=== PATIENT | female | born 1960 | race African-American/Black ===

== ENCOUNTER 2021-09-25 09:19 | Emergency (ER) | payer MEDICARE, MEDICAID ==
[2021-09-25 10:13] LABS: #Eosinphils 0.2 10x3/uL (0.0-0.5); #Monocytes 0.6 10x3/uL (0.0-1.1); #Neutrophils 6.5 10x3/uL (1.5-8.4); %Basophils 0.3 % (0.0-2.0); %Eosinophils 2.1 % (0.0-6.0); %Lymphocytes 15.7 % (18.0-47.0); %Monocytes 6.5 % (0.0-10.0); %Neutrophils 75.1 % (40.0-75.0); Hemoglobin 8.3 g/dL (12.0-15.5); Mean Corpuscular Hemoglobin 26.5 pg (27.0-33.0); Mean Corpuscular Volume 85.6 fl (81.6-98.3); Mean Platelet Volume 9.9 fl (7.4-10.4); Platelet Count 251 10x3/uL (150-450); RBC Distribution Width 14.2 % (11.5-14.5); Red Blood Cell (RBC) Count 3.13 10x6/uL (3.90-5.03); White Blood Cell (WBC) Count 8.6 10x3/uL (3.5-10.5)
[2021-09-25 10:41] LABS: ALT (SGPT) 9 U/L (8-55); AST (SGOT) 10 U/L (5-34); Albumin 3.6 g/dL (3.4-4.8); Alkaline Phosphatase 95 U/L (40-110); Anion Gap 14 mmol/L (10-20); BUN (Urea Nitrogen) 37 mg/dL (9.8-20.1); Bilirubin, Total 0.2 mg/dL (0.2-1.2); Calc. Creatinine Clearance 0 mL/min (70-130); Calcium 8.7 mg/dL (7.8-10.44); Carbon Dioxide 20 mmol/L (23-31); Chloride 106 mmol/L (98-107); Globulin 2.7 g/dL (2.4-3.5); Glucose 334 mg/dL (80-115); Potassium 5.4 mmol/L (3.5-5.1); Protein, Total 6.3 g/dL (5.8-8.1); Sodium 135 mmol/L (136-145)
== END 2021-09-25 13:22 | disposition home or self-care (01) ==
LOC: CSHERS 09:19
DX: R07.89 Other chest pain (principal); E11.22 Type 2 diabetes mellitus with diabetic chronic kidney disease; E11.40 Type 2 diabetes mellitus with diabetic neuropathy, unspecified; I13.0 Hypertensive heart and chronic kidney disease with heart failure and stage 1 through stage 4 chronic kidney disease, or unspecified chronic kidney disease; E03.9 Hypothyroidism, unspecified; D64.9 Anemia, unspecified; D57.3 Sickle-cell trait; I48.91 Unspecified atrial fibrillation; E78.00 Pure hypercholesterolemia, unspecified; E78.5 Hyperlipidemia, unspecified; M19.90 Unspecified osteoarthritis, unspecified site; F03.90 Unspecified dementia, unspecified severity, without behavioral disturbance, psychotic disturbance, mood disturbance, and anxiety; Z86.73 Personal history of transient ischemic attack (TIA), and cerebral infarction without residual deficits; J44.9 Chronic obstructive pulmonary disease, unspecified; Z79.01 Long term (current) use of anticoagulants; Z79.899 Other long term (current) drug therapy; Z79.4 Long term (current) use of insulin; Z79.84 Long term (current) use of oral hypoglycemic drugs
CPT/HCPCS: 36415; 71045; 80053; 83880; 84484; 85025; 93005

== ENCOUNTER 2021-11-25 00:05 | Inpatient (IN) | payer MEDICARE, MEDICAID ==
[2021-11-25 00:58] LABS: ALT (SGPT) 13 U/L (8-55); AST (SGOT) 14 U/L (5-34); Albumin 3.9 g/dL (3.4-4.8); Alkaline Phosphatase 99 U/L (40-110); Anion Gap 14 mmol/L (10-20); BUN (Urea Nitrogen) 26 mg/dL (9.8-20.1); Bilirubin, Total 0.3 mg/dL (0.2-1.2); Calc. Creatinine Clearance 0 mL/min (70-130); Chloride 104 mmol/L (98-107); Globulin 2.8 g/dL (2.4-3.5); Glucose 151 mg/dL (80-115); Potassium 5.2 mmol/L (3.5-5.1); Protein, Total 6.7 g/dL (5.8-8.1); Sodium 138 mmol/L (136-145)
[2021-11-25 00:59] LABS: Hemoglobin 8.8 g/dL (12.0-15.5); Mean Corpuscular HGB CONC 30.7 g/dL (32.0-36.0); Mean Corpuscular Hemoglobin 25.4 pg (27.0-33.0); Mean Corpuscular Volume 82.9 fl (81.6-98.3); Mean Platelet Volume 9.8 fl (7.4-10.4); Platelet Count 219 10x3/uL (150-450); RBC Distribution Width 14.6 % (11.5-14.5); Red Blood Cell (RBC) Count 3.46 10x6/uL (3.90-5.03); White Blood Cell (WBC) Count 5.1 10x3/uL (3.5-10.5)
[2021-11-25 01:22] LABS: CKMB 1.3 ng/mL (0-6.6)
[2021-11-25 01:24] LABS: MDiff Complete? YES
[2021-11-25 01:29] LABS: Carbon Dioxide 25 mmol/L (23-31)
[2021-11-25 01:31] LABS: Eosinophils 1 % (0-10); Lymphocytes 20 % (21-51); Monocytes 22 % (0-10); Neutrophil 57 % (42-75)
[2021-11-25 01:34] LABS: Platelet Morphology Comment Appears Adequate; RBC Morphology Normal
[2021-11-25] MEDS ORDERED: Dexamethasone 10 MG/ML VIAL ONE (02:36)
[2021-11-25] MEDS ORDERED: Mometasone/Formoterol 200/5 60 PUFF INH SCH (07:00)
[2021-11-25] MEDS ORDERED: Furosemide 100 MG/10 ML VIAL SLOW IVP SCH (07:30)
[2021-11-25] MEDS ORDERED: Lantus 1000 UNITS/10 ML VIAL SC SCH ×2 (09:00→21:00)
[2021-11-25] MEDS ORDERED: Apixaban 2.5 MG TAB PO SCH (09:00)
[2021-11-25] MEDS ORDERED: risperiDONE 1 MG TAB PO SCH (09:00)
[2021-11-25] MEDS: Amlodipine 10 MG TAB PO SCH ×2 (09:05→15:19)
[2021-11-25] MEDS: Brimonidine Tartrate 0.2% Ophth Soln 5 ml Bottle L EYE SCH ×3 (09:05→20:18)
[2021-11-25] MEDS: Ascorbic Acid 500 mg Chewable Tablet PO SCH ×2 (09:05→15:20)
[2021-11-25] MEDS: Cholecalciferol 1,000 UNITS (25 MCG) TAB PO SCH ×2 (09:05→15:20)
[2021-11-25] MEDS: Levothyroxine Sodium 125 MCG TAB PO SCH ×2 (09:05→15:19)
[2021-11-25] MEDS: Aspirin 81 mg Enteric Coated Tablet PO SCH ×2 (09:05→15:20)
[2021-11-25] MEDS: Zinc Sulfate 220 MG CAP PO SCH ×2 (09:05→15:20)
[2021-11-25] MEDS: clonazePAM 0.5 MG TAB PO SCH ×3 (09:05→20:19)
[2021-11-25] MEDS: Lisinopril 10 MG TAB PO SCH ×2 (09:06→15:20)
[2021-11-25] MEDS: Timolol 0.25% Ophth Soln 5 ml Bottle EA EYE SCH ×2 (09:06→20:20)
[2021-11-25] MEDS: Dexamethasone 20 MG/5 ML VIAL SLOW IVP SCH ×2 (09:06→15:20)
[2021-11-25] MEDS: Brimonidine Tartrate 0.2% Ophth Soln 5 ml Bottle R EYE SCH ×2 (09:06→20:18)
[2021-11-25 09:09] VITALS: BMI 54.8
[2021-11-25] MEDS: Apixaban 5 MG TAB PO SCH ×3 (09:28→20:18)
[2021-11-25] MEDS ORDERED: Dextrose 5% in Water 1,000 ML IV PRN (12:53)
[2021-11-25] MEDS ORDERED: Dextrose 50% Abboject 50 ML SYRINGE SLOW IVP PRN (12:53)
[2021-11-25] MEDS: Furosemide 40 MG/4 ML VIAL SLOW IVP SCH (14:26)
[2021-11-25] MEDS: risperiDONE 1 MG TAB PO SCH ×2 (18:45→20:17)
[2021-11-25] MEDS: HumaLOG 300 UNITS/3 ML VIAL SC PRN (19:35)
[2021-11-25] MEDS: Mometasone/Formoterol 200/5 60 PUFF INH SCH (20:55)
[2021-11-25] MEDS ORDERED: Latanoprost 0.005% Ophth Soln 2.5 ml Bottle EA EYE SCH (21:00)
[2021-11-25] MEDS ORDERED: Atorvastatin Calcium 40 MG TAB PO SCH (21:00)
[2021-11-25 21:38] LABS: Actual Bicarbonate (HCO3a) 17.2 mEq/L (22-28); Base Excess (BEa) -3.1 mEq/L (-2.0 to +3.0); CO2 Tension 18.7 mmHg (35.0-45.0); Calcium, Ionized (arterial) 0.94 mmol/L (1.12-1.30); Carboxyhemoglobin (COHb) 0.3 gm% (0.0-3.0); O2 Tension (PaO2), arterial 198.3 mmHg (> 80.0); Potassium - ABG Lab 5.6 mmol/L (3.70-5.30); Puncture Site Other Site; pH, Arterial 7.58 (7.35-7.45)
[2021-11-25 21:39] LABS: ALV-art Gradient -22.035 mmHg (0-20)
[2021-11-26 05:28] LABS: ALT (SGPT) 13 U/L (8-55); AST (SGOT) 15 U/L (5-34); Albumin 3.4 g/dL (3.4-4.8); Alkaline Phosphatase 91 U/L (40-110); Anion Gap 16 mmol/L (10-20); BUN (Urea Nitrogen) 44 mg/dL (9.8-20.1); Bilirubin, Total 0.2 mg/dL (0.2-1.2); CRP (Inflammatory) 1.45 mg/dL (= or < 0.5); Calc. Creatinine Clearance 41 mL/min (70-130); Calcium 8.6 mg/dL (7.8-10.44); Carbon Dioxide 22 mmol/L (23-31); Chloride 102 mmol/L (98-107); Globulin 3.1 g/dL (2.4-3.5); Glucose 218 mg/dL (80-115); Potassium 5.2 mmol/L (3.5-5.1); Protein, Total 6.5 g/dL (5.8-8.1); Sodium 135 mmol/L (136-145)
[2021-11-26 05:48] LABS: #Monocytes 0.7 10x3/uL (0.0-1.1); #Neutrophils 3.5 10x3/uL (1.5-8.4); %Basophils 0.2 % (0.0-2.0); %Lymphocytes 15.4 % (18.0-47.0); %Monocytes 14.6 % (0.0-10.0); %Neutrophils 69.4 % (40.0-75.0); Hemoglobin 8.5 g/dL (12.0-15.5); Mean Corpuscular HGB CONC 31.5 g/dL (32.0-36.0); Mean Corpuscular Hemoglobin 25.8 pg (27.0-33.0); Mean Corpuscular Volume 82.1 fl (81.6-98.3); Mean Platelet Volume 10.4 fl (7.4-10.4); Platelet Count 197 10x3/uL (150-450); RBC Distribution Width 14.1 % (11.5-14.5); Red Blood Cell (RBC) Count 3.29 10x6/uL (3.90-5.03); White Blood Cell (WBC) Count 5.1 10x3/uL (3.5-10.5)
[2021-11-26] MEDS: Furosemide 40 MG/4 ML VIAL SLOW IVP SCH ×2 (05:59→14:18)
[2021-11-26] MEDS: Levothyroxine Sodium 125 MCG TAB PO SCH ×2 (05:59→06:09)
[2021-11-26] MEDS: HumaLOG 300 UNITS/3 ML VIAL SC PRN ×3 (06:00→12:30)
[2021-11-26] MEDS: Mometasone/Formoterol 200/5 60 PUFF INH SCH (07:13)
[2021-11-26] MEDS: Dexamethasone 20 MG/5 ML VIAL SLOW IVP SCH (08:06)
[2021-11-26] MEDS: Lisinopril 10 MG TAB PO SCH (08:07)
[2021-11-26] MEDS: Ascorbic Acid 500 mg Chewable Tablet PO SCH (08:07)
[2021-11-26] MEDS: clonazePAM 0.5 MG TAB PO SCH (08:07)
[2021-11-26] MEDS: Zinc Sulfate 220 MG CAP PO SCH (08:07)
[2021-11-26] MEDS: Amlodipine 10 MG TAB PO SCH (08:07)
[2021-11-26] MEDS: Aspirin 81 mg Enteric Coated Tablet PO SCH (08:07)
[2021-11-26] MEDS: risperiDONE 1 MG TAB PO SCH ×2 (08:07→14:18)
[2021-11-26] MEDS: Cholecalciferol 1,000 UNITS (25 MCG) TAB PO SCH (08:07)
[2021-11-26] MEDS: Apixaban 5 MG TAB PO SCH (08:07)
[2021-11-26] MEDS: Brimonidine Tartrate 0.2% Ophth Soln 5 ml Bottle L EYE SCH (08:07)
[2021-11-26] MEDS: Brimonidine Tartrate 0.2% Ophth Soln 5 ml Bottle R EYE SCH (08:08)
[2021-11-26] MEDS: Timolol 0.25% Ophth Soln 5 ml Bottle EA EYE SCH (08:08)
[2021-11-26] MEDS ORDERED: Pantoprazole 40 MG VIAL IVP SCH (09:00)
[2021-11-26 15:31] LABS: SARS-CoV-2 PCR by NAA DETECTED (NotDetected)
[2021-11-26 18:29] VITALS: BP 122/68; TEMP 97.1
== END 2021-11-26 18:49 | disposition home or self-care (01) | DRG 177 ==
LOC: CSHERS 00:05 → CSHTELE 06:31
PROVIDERS: ADMIT Family Medicine; ATTEND Family Medicine
PROC: 8E0ZXY6 Isolation (ICD-10-PCS; principal; 2021-11-25)
DX: U07.1 COVID-19 (principal); J96.01 Acute respiratory failure with hypoxia; I50.30 Unspecified diastolic (congestive) heart failure; N18.4 Chronic kidney disease, stage 4 (severe); I13.0 Hypertensive heart and chronic kidney disease with heart failure and stage 1 through stage 4 chronic kidney disease, or unspecified chronic kidney disease; Z68.43 Body mass index [BMI] 50.0-59.9, adult; F03.90 Unspecified dementia, unspecified severity, without behavioral disturbance, psychotic disturbance, mood disturbance, and anxiety; F31.9 Bipolar disorder, unspecified; F20.9 Schizophrenia, unspecified; E66.01 Morbid (severe) obesity due to excess calories; N18.9 Chronic kidney disease, unspecified; I48.0 Paroxysmal atrial fibrillation; K21.9 Gastro-esophageal reflux disease without esophagitis; E89.0 Postprocedural hypothyroidism; E11.22 Type 2 diabetes mellitus with diabetic chronic kidney disease; E78.5 Hyperlipidemia, unspecified; E78.00 Pure hypercholesterolemia, unspecified; M19.90 Unspecified osteoarthritis, unspecified site; J45.909 Unspecified asthma, uncomplicated; E11.40 Type 2 diabetes mellitus with diabetic neuropathy, unspecified; E87.5 Hyperkalemia; Z88.1 Allergy status to other antibiotic agents; Z79.899 Other long term (current) drug therapy; Z79.4 Long term (current) use of insulin; Z90.710 Acquired absence of both cervix and uterus; Z20.822 Contact with and (suspected) exposure to COVID-19; J44.9 Chronic obstructive pulmonary disease, unspecified; Z86.73 Personal history of transient ischemic attack (TIA), and cerebral infarction without residual deficits; Z79.01 Long term (current) use of anticoagulants
CPT/HCPCS: 0240U; 36415; 36416; 71045; 80053; 82140; 82550; 82553; 82805; 83690; 83735; 83880; 84145; 84443; 84484; 85025; 86140; 93005; 93010; 94664; 94760; 96374; C9113; J1100; J1815; J1940; U0003; U0005

== ENCOUNTER 2022-12-04 13:47 | Inpatient (IN) | payer MEDICARE, OTHER ==
[~2022-12-04 13:47] MED LIST: Iopamidol 370 76% 100 ML VIAL ONE
[2022-12-04 14:32] LABS: #Eosinphils 0.4 10x3/uL (0.0-0.5); #Monocytes 0.5 10x3/uL (0.0-1.1); #Neutrophils 5.4 10x3/uL (1.5-8.4); %Basophils 0.3 % (0.0-2.0); %Eosinophils 5.1 % (0.0-6.0); %Lymphocytes 16.6 % (18.0-47.0); %Monocytes 6.3 % (0.0-10.0); %Neutrophils 71.4 % (40.0-75.0); Hemoglobin 11.1 g/dL (12.0-15.5); Mean Corpuscular HGB CONC 31.9 g/dL (32.0-36.0); Mean Corpuscular Hemoglobin 26.9 pg (27.0-33.0); Mean Corpuscular Volume 84.3 fl (81.6-98.3); Mean Platelet Volume 9.7 fl (7.4-10.4); Platelet Count 227 10x3/uL (150-450); Red Blood Cell (RBC) Count 4.13 10x6/uL (3.90-5.03); White Blood Cell (WBC) Count 7.6 10x3/uL (3.5-10.5)
[2022-12-04 14:40] LABS: ALT (SGPT) 11 U/L (8-55); AST (SGOT) 12 U/L (5-34); Albumin 3.9 g/dL (3.4-4.8); Alkaline Phosphatase 94 U/L (40-110); Anion Gap 17 mmol/L (10-20); BUN (Urea Nitrogen) 24 mg/dL (9.8-20.1); Bilirubin, Total 0.3 mg/dL (0.2-1.2); Calc. Creatinine Clearance 0 mL/min (70-130); Calcium 9.4 mg/dL (7.8-10.44); Carbon Dioxide 18 mmol/L (23-31); Chloride 110 mmol/L (98-107); Estimated GFR 27; Globulin 2.8 g/dL (2.4-3.5); Glucose 83 mg/dL (80-115); Protein, Total 6.7 g/dL (5.8-8.1); Sodium 140 mmol/L (136-145)
[2022-12-04 14:57] LABS: CKMB 1.1 ng/mL (0-6.6)
[2022-12-04 15:10] LABS: INR-International Normal Ratio 0.9; PTT 29.2 sec (22.0-33.0); Prothrombin Time 10.3 sec (9.5-12.1)
[2022-12-04] MEDS ORDERED: Ondansetron PF 4 MG/2 ML Vial IVP PRN (16:25)
[2022-12-04] MEDS ORDERED: Aspirin 300 MG Suppository PR SCH (18:30)
[2022-12-04 19:04] VITALS: BMI 41.5
[2022-12-04] MEDS ORDERED: Sodium Bicarbonate 150 MEQ, Admixture Fee 1 EACH in Dextrose 5% in Water 1,000 ML IV SCH (20:00)
[2022-12-04] MEDS ORDERED: Timolol 0.25% Ophth Soln 5 ml Bottle EA EYE SCH (21:00)
[2022-12-04] MEDS ORDERED: Brimonidine Tartrate 0.2% Ophth Soln 5 ml Bottle EA EYE SCH (21:00)
[2022-12-04] MEDS: Latanoprost 0.005% Ophth Soln 2.5 ml Bottle EA EYE SCH (21:34)
[2022-12-04] MEDS: Nystatin Powder 15 GM BOT TOP SCH (21:35)
[2022-12-04 21:52] LABS: Hemoglobin A1c 5.8 % (4.0-6.0)
[2022-12-05 03:50] LABS: #Eosinphils 0.1 10x3/uL (0.0-0.5); #Monocytes 0.5 10x3/uL (0.0-1.1); #Neutrophils 2.6 10x3/uL (1.5-8.4); %Basophils 0.4 % (0.0-2.0); %Eosinophils 2.6 % (0.0-6.0); %Lymphocytes 34.9 % (18.0-47.0); %Monocytes 9.7 % (0.0-10.0); %Neutrophils 52.2 % (40.0-75.0); Hemoglobin 9.4 g/dL (12.0-15.5); Mean Corpuscular HGB CONC 32.3 g/dL (32.0-36.0); Mean Corpuscular Hemoglobin 26.6 pg (27.0-33.0); Mean Corpuscular Volume 82.4 fl (81.6-98.3); Mean Platelet Volume 9.5 fl (7.4-10.4); Platelet Count 225 10x3/uL (150-450); RBC Distribution Width 14.1 % (11.5-14.5); Red Blood Cell (RBC) Count 3.53 10x6/uL (3.90-5.03)
[2022-12-05 03:54] LABS: ALT (SGPT) 10 U/L (8-55); Albumin 3.3 g/dL (3.4-4.8); Alkaline Phosphatase 72 U/L (40-110); Anion Gap 12 mmol/L (10-20); BUN (Urea Nitrogen) 25 mg/dL (9.8-20.1); Bilirubin, Total 0.3 mg/dL (0.2-1.2); Calc. Creatinine Clearance 48 mL/min (70-130); Calcium 9.5 mg/dL (7.8-10.44); Carbon Dioxide 26 mmol/L (23-31); Chloride 107 mmol/L (98-107); Estimated GFR 26; Globulin 3.1 g/dL (2.4-3.5); Glucose 85 mg/dL (80-115); Potassium 4.5 mmol/L (3.5-5.1); Protein, Total 6.4 g/dL (5.8-8.1); Sodium 140 mmol/L (136-145)
[2022-12-05 04:00] LABS: Cardiac Risk 4.4 (Less than 4.5); Cholesterol 150 mg/dl (< 200 Desired); HDL Cholesterol 34 mg/dL (>60 Neg Risk)
[2022-12-05 04:10] LABS: AST (SGOT) 7 U/L (5-34); Triglycerides 97 mg/dL (Less than 150)
[2022-12-05 04:13] LABS: LDL Cholesterol, Calculated 97 mg/dL
[2022-12-05] MEDS ORDERED: Non-Formulary Medication 1 EACH (Brimonidine Tartrate/Timolol [Combigan 0.2%-0.5% Eye Drop EA EYE SCH (07:30)
[2022-12-05] MEDS ORDERED: Aspirin 81 mg Enteric Coated Tablet PO SCH (09:00)
[2022-12-05] MEDS: Enoxaparin 120 MG/0.8 ML SYRINGE SC SCH ×2 (12:02→21:32)
[2022-12-05] MEDS: Aspirin 300 MG Suppository PR SCH (12:02)
[2022-12-05] MEDS: Brimonidine Tartrate 0.2% Ophth Soln 5 ml Bottle EA EYE SCH ×2 (12:03→21:31)
[2022-12-05] MEDS: Pantoprazole 40 MG VIAL IVP SCH (12:03)
[2022-12-05] MEDS: Nystatin Powder 15 GM BOT TOP SCH ×2 (12:03→21:34)
[2022-12-05] MEDS: Timolol 0.5% Ophth Soln 5 ml Bottle EA EYE SCH ×2 (12:04→21:50)
[2022-12-05] MEDS ORDERED: Calcium Carbonate 500 MG ChewTAB PO PRN (17:40)
[2022-12-05] MEDS: Latanoprost 0.005% Ophth Soln 2.5 ml Bottle EA EYE SCH (21:34)
[2022-12-05] MEDS: Atorvastatin Calcium 40 MG TAB PO SCH (21:46)
[2022-12-06] MEDS: Levothyroxine Sodium 125 MCG TAB PO SCH (05:43)
[2022-12-06 06:04] LABS: #Eosinphils 0.2 10x3/uL (0.0-0.5); #Monocytes 0.9 10x3/uL (0.0-1.1); #Neutrophils 4.5 10x3/uL (1.5-8.4); %Basophils 0.5 % (0.0-2.0); %Eosinophils 2.5 % (0.0-6.0); %Lymphocytes 29.1 % (18.0-47.0); %Monocytes 10.6 % (0.0-10.0); %Neutrophils 55.8 % (40.0-75.0); Hemoglobin 10.5 g/dL (12.0-15.5); Mean Corpuscular HGB CONC 33.2 g/dL (32.0-36.0); Mean Corpuscular Hemoglobin 26.9 pg (27.0-33.0); Mean Platelet Volume 10.3 fl (7.4-10.4); Platelet Count 180 10x3/uL (150-450); White Blood Cell (WBC) Count 8.1 10x3/uL (3.5-10.5)
[2022-12-06] MEDS: Aspirin 300 MG Suppository PR SCH (10:16)
[2022-12-06] MEDS: Pantoprazole 40 MG VIAL IVP SCH (10:19)
[2022-12-06] MEDS: Enoxaparin 120 MG/0.8 ML SYRINGE SC SCH ×2 (10:19→21:35)
[2022-12-06] MEDS: Timolol 0.5% Ophth Soln 5 ml Bottle EA EYE SCH ×2 (10:19→21:34)
[2022-12-06] MEDS: Nystatin Powder 15 GM BOT TOP SCH ×2 (10:30→21:36)
[2022-12-06] MEDS: Brimonidine Tartrate 0.2% Ophth Soln 5 ml Bottle EA EYE SCH ×2 (10:30→21:34)
[2022-12-06] MEDS: D5 1/2 NS w/10 mEq KCl 1,000 ML/1,000 ML BAG IV SCH (13:00)
[2022-12-06] MEDS: Atorvastatin Calcium 40 MG TAB PO SCH (21:28)
[2022-12-06] MEDS: Latanoprost 0.005% Ophth Soln 2.5 ml Bottle EA EYE SCH (21:33)
[2022-12-07] MEDS: Levothyroxine Sodium 125 MCG TAB PO SCH (06:12)
[2022-12-07] MEDS: D5 1/2 NS w/10 mEq KCl 1,000 ML/1,000 ML BAG IV SCH (08:32)
[2022-12-07] MEDS: Pantoprazole 40 MG VIAL IVP SCH (08:33)
[2022-12-07] MEDS: Aspirin 300 MG Suppository PR SCH (08:33)
[2022-12-07] MEDS: Nystatin Powder 15 GM BOT TOP SCH ×2 (08:33→21:09)
[2022-12-07] MEDS: Enoxaparin 120 MG/0.8 ML SYRINGE SC SCH ×2 (08:33→21:06)
[2022-12-07] MEDS: Brimonidine Tartrate 0.2% Ophth Soln 5 ml Bottle EA EYE SCH ×2 (08:33→21:07)
[2022-12-07] MEDS: Timolol 0.5% Ophth Soln 5 ml Bottle EA EYE SCH ×2 (08:34→21:17)
[2022-12-07 11:52] LABS: Anion Gap 15 mmol/L (10-20); BUN (Urea Nitrogen) 21 mg/dL (9.8-20.1); Calc. Creatinine Clearance 54 mL/min (70-130); Calcium 9.3 mg/dL (7.8-10.44); Carbon Dioxide 23 mmol/L (23-31); Chloride 106 mmol/L (98-107); Estimated GFR 30; Glucose 139 mg/dL (80-115); Potassium 5.5 mmol/L (3.5-5.1); Sodium 138 mmol/L (136-145)
[2022-12-07 17:00] LABS: Potassium 4.3 mmol/L (3.5-5.1)
[2022-12-07] MEDS: Dextrose 5 %-0.45 % NaCl 1,000 ML IV SCH (17:33)
[2022-12-07] MEDS: Latanoprost 0.005% Ophth Soln 2.5 ml Bottle EA EYE SCH (21:08)
[2022-12-07] MEDS: Atorvastatin Calcium 40 MG TAB PO SCH (21:20)
[2022-12-08] MEDS: Levothyroxine Sodium 125 MCG TAB PO SCH (05:26)
[2022-12-08 06:34] LABS: Anion Gap 13 mmol/L (10-20); BUN (Urea Nitrogen) 19 mg/dL (9.8-20.1); Calc. Creatinine Clearance 54 mL/min (70-130); Calcium 9.4 mg/dL (7.8-10.44); Carbon Dioxide 25 mmol/L (23-31); Chloride 107 mmol/L (98-107); Estimated GFR 29; Glucose 121 mg/dL (80-115); Potassium 4.3 mmol/L (3.5-5.1); Sodium 141 mmol/L (136-145)
[2022-12-08] MEDS: Timolol 0.5% Ophth Soln 5 ml Bottle EA EYE SCH ×2 (08:26→21:39)
[2022-12-08] MEDS: Brimonidine Tartrate 0.2% Ophth Soln 5 ml Bottle EA EYE SCH ×2 (08:26→21:38)
[2022-12-08] MEDS: Aspirin 300 MG Suppository PR SCH (08:26)
[2022-12-08] MEDS: Pantoprazole 40 MG VIAL IVP SCH (08:26)
[2022-12-08] MEDS: Enoxaparin 120 MG/0.8 ML SYRINGE SC SCH (08:26)
[2022-12-08] MEDS: Nystatin Powder 15 GM BOT TOP SCH ×2 (09:25→21:40)
[2022-12-08] MEDS: Dextrose 5 %-0.45 % NaCl 1,000 ML IV SCH (12:07)
[2022-12-08] MEDS: Atorvastatin Calcium 40 MG TAB PO SCH (21:38)
[2022-12-08] MEDS: Latanoprost 0.005% Ophth Soln 2.5 ml Bottle EA EYE SCH (21:39)
[2022-12-09 04:53] LABS: Anion Gap 14 mmol/L (10-20); BUN (Urea Nitrogen) 18 mg/dL (9.8-20.1); Calc. Creatinine Clearance 56 mL/min (70-130); Calcium 9.5 mg/dL (7.8-10.44); Carbon Dioxide 23 mmol/L (23-31); Chloride 107 mmol/L (98-107); Estimated GFR 30; Glucose 118 mg/dL (80-115); Potassium 4.1 mmol/L (3.5-5.1); Sodium 140 mmol/L (136-145)
[2022-12-09] MEDS: Levothyroxine Sodium 125 MCG TAB PO SCH (05:45)
[2022-12-09] MEDS: Dextrose 5 %-0.45 % NaCl 1,000 ML IV SCH (06:15)
[2022-12-09] MEDS: Timolol 0.5% Ophth Soln 5 ml Bottle EA EYE SCH ×2 (08:10→21:45)
[2022-12-09] MEDS: Pantoprazole 40 MG VIAL IVP SCH (08:10)
[2022-12-09] MEDS: Aspirin 300 MG Suppository PR SCH (08:10)
[2022-12-09] MEDS: Nystatin Powder 15 GM BOT TOP SCH ×2 (08:10→21:47)
[2022-12-09] MEDS: Brimonidine Tartrate 0.2% Ophth Soln 5 ml Bottle EA EYE SCH ×2 (08:10→21:45)
[2022-12-09] MEDS ORDERED: Ketamine 50 MG/ML (10ML VIAL) ONE (16:45)
[2022-12-09] MEDS ORDERED: Midazolam HCl 2 mg/2 ml Vial ONE (16:49)
[2022-12-09] MEDS ORDERED: Glycopyrrolate 0.2 MG/ML 5 ML SYRINGE ONE (16:49)
[2022-12-09] MEDS ORDERED: Levofloxacin 500 mg/D5W 100 ml Premix Bag ONE (16:59)
[2022-12-09] MEDS: Atorvastatin Calcium 40 MG TAB PO SCH (21:45)
[2022-12-09] MEDS: Insulin Regular 300 UNITS/3 ML VIAL SC PRN (21:47)
[2022-12-09] MEDS: Latanoprost 0.005% Ophth Soln 2.5 ml Bottle EA EYE SCH (21:47)
[2022-12-10] MEDS: Dextrose 5 %-0.45 % NaCl 1,000 ML IV SCH (02:55)
[2022-12-10] MEDS: Levothyroxine Sodium 125 MCG TAB PO SCH (05:10)
[2022-12-10 07:29] LABS: Anion Gap 18 mmol/L (10-20); BUN (Urea Nitrogen) 19 mg/dL (9.8-20.1); Calc. Creatinine Clearance 56 mL/min (70-130); Calcium 9.4 mg/dL (7.8-10.44); Carbon Dioxide 19 mmol/L (23-31); Chloride 107 mmol/L (98-107); Estimated GFR 31; Glucose 120 mg/dL (80-115); Potassium 5.1 mmol/L (3.5-5.1); Sodium 139 mmol/L (136-145)
[2022-12-10] MEDS: Brimonidine Tartrate 0.2% Ophth Soln 5 ml Bottle EA EYE SCH ×2 (08:14→23:30)
[2022-12-10] MEDS: Timolol 0.5% Ophth Soln 5 ml Bottle EA EYE SCH ×2 (08:14→23:33)
[2022-12-10] MEDS: Pantoprazole 40 MG VIAL IVP SCH (08:14)
[2022-12-10] MEDS: Aspirin 300 MG Suppository PR SCH (08:15)
[2022-12-10] MEDS: Enoxaparin 120 MG/0.8 ML SYRINGE SC SCH (08:56)
[2022-12-10] MEDS: Nystatin Powder 15 GM BOT TOP SCH (08:56)
[2022-12-10] MEDS: risperiDONE 1 MG TAB PO SCH ×2 (15:33→23:34)
[2022-12-10] MEDS: Insulin Regular 300 UNITS/3 ML VIAL SC PRN (17:18)
[2022-12-10] MEDS: Atorvastatin Calcium 40 MG TAB PO SCH (23:29)
[2022-12-10] MEDS: Apixaban 5 MG TAB PO SCH (23:30)
[2022-12-10] MEDS: Ascorbic Acid 500 mg Chewable Tablet PO SCH (23:30)
[2022-12-10] MEDS: Latanoprost 0.005% Ophth Soln 2.5 ml Bottle EA EYE SCH (23:30)
[2022-12-11 05:30] LABS: #Eosinphils 0.1 10x3/uL (0.0-0.5); #Monocytes 0.6 10x3/uL (0.0-1.1); #Neutrophils 3.3 10x3/uL (1.5-8.4); %Basophils 0.4 % (0.0-2.0); %Eosinophils 2.3 % (0.0-6.0); %Lymphocytes 28.6 % (18.0-47.0); %Monocytes 11.1 % (0.0-10.0); %Neutrophils 57.4 % (40.0-75.0); Mean Corpuscular HGB CONC 33.2 g/dL (32.0-36.0); Mean Corpuscular Hemoglobin 26.8 pg (27.0-33.0); Mean Corpuscular Volume 80.7 fl (81.6-98.3); Mean Platelet Volume 10.1 fl (7.4-10.4); Platelet Count 188 10x3/uL (150-450); RBC Distribution Width 13.5 % (11.5-14.5); Red Blood Cell (RBC) Count 3.36 10x6/uL (3.90-5.03); White Blood Cell (WBC) Count 5.7 10x3/uL (3.5-10.5)
[2022-12-11] MEDS: Levothyroxine Sodium 125 MCG TAB PO SCH (05:48)
[2022-12-11] MEDS: Nystatin Powder 15 GM BOT TOP SCH ×2 (05:48→09:21)
[2022-12-11 05:49] LABS: Anion Gap 13 mmol/L (10-20); BUN (Urea Nitrogen) 22 mg/dL (9.8-20.1); Calc. Creatinine Clearance 46 mL/min (70-130); Calcium 9.1 mg/dL (7.8-10.44); Carbon Dioxide 24 mmol/L (23-31); Chloride 106 mmol/L (98-107); Estimated GFR 24; Glucose 157 mg/dL (80-115); Potassium 3.9 mmol/L (3.5-5.1); Sodium 139 mmol/L (136-145)
[2022-12-11] MEDS: Insulin Regular 300 UNITS/3 ML VIAL SC PRN (07:13)
[2022-12-11] MEDS ORDERED: Midodrine HCl 2.5 MG TAB PO SCH (07:15)
[2022-12-11] MEDS ORDERED: Sertraline 100 MG TAB PO SCH (09:00)
[2022-12-11] MEDS ORDERED: Lansoprazole 3 MG/ML ORAL SUSPENSION PER TUBE SCH (09:00)
[2022-12-11] MEDS: Apixaban 5 MG TAB PO SCH (09:21)
[2022-12-11] MEDS: Aspirin 300 MG Suppository PR SCH (09:21)
[2022-12-11] MEDS: Brimonidine Tartrate 0.2% Ophth Soln 5 ml Bottle EA EYE SCH (09:21)
[2022-12-11] MEDS: Timolol 0.5% Ophth Soln 5 ml Bottle EA EYE SCH (09:21)
[2022-12-11] MEDS: risperiDONE 1 MG TAB PO SCH (09:21)
[2022-12-11] MEDS: Ascorbic Acid 500 mg Chewable Tablet PO SCH (09:21)
[2022-12-11 12:38] VITALS: BP 165/70; TEMP 98.1
== END 2022-12-11 14:19 | DRG 65 ==
LOC: CSHERS 13:47 → CSHTELE 17:57
PROVIDERS: ADMIT Internal Medicine; ATTEND Family Medicine
PROC: 0DH63UZ Insertion of Feeding Device into Stomach, Percutaneous Approach (ICD-10-PCS; principal; 2022-12-09)
DX: I63.512 Cerebral infarction due to unspecified occlusion or stenosis of left middle cerebral artery (principal); I13.0 Hypertensive heart and chronic kidney disease with heart failure and stage 1 through stage 4 chronic kidney disease, or unspecified chronic kidney disease; I50.32 Chronic diastolic (congestive) heart failure; N18.4 Chronic kidney disease, stage 4 (severe); Z68.41 Body mass index [BMI] 40.0-44.9, adult; Z66 Do not resuscitate; Z51.5 Encounter for palliative care; R53.81 Other malaise; I48.91 Unspecified atrial fibrillation; F31.9 Bipolar disorder, unspecified; E11.40 Type 2 diabetes mellitus with diabetic neuropathy, unspecified; E11.22 Type 2 diabetes mellitus with diabetic chronic kidney disease; D63.1 Anemia in chronic kidney disease; J44.9 Chronic obstructive pulmonary disease, unspecified; K21.9 Gastro-esophageal reflux disease without esophagitis; F25.9 Schizoaffective disorder, unspecified; I48.0 Paroxysmal atrial fibrillation; R13.12 Dysphagia, oropharyngeal phase; E89.0 Postprocedural hypothyroidism; F03.90 Unspecified dementia, unspecified severity, without behavioral disturbance, psychotic disturbance, mood disturbance, and anxiety; E66.01 Morbid (severe) obesity due to excess calories; Z88.8 Allergy status to other drugs, medicaments and biological substances; Z90.710 Acquired absence of both cervix and uterus; Z79.01 Long term (current) use of anticoagulants; Z79.4 Long term (current) use of insulin; Z79.899 Other long term (current) drug therapy; Z79.82 Long term (current) use of aspirin; Z79.890 Hormone replacement therapy; Z98.890 Other specified postprocedural states
CPT/HCPCS: 0042T; 36415; 36416; 70450; 70551; 71045; 80048; 80053; 80061; 82140; 82553; 83036; 83735; 84443; 84484; 85025; 85610; 85730; 93005; 93306; 94760; 95816; 95819; 95957; 97139; C9113; J1650; J1815; J1956; J2250; J3480; J7042; J7070; Q9967